=== PATIENT | male | born 1970 ===

== ENCOUNTER 2020-12-28 17:06 | Emergency (ER) | payer OTHER ==
[~2020-12-28 17:06] MED LIST: Iopamidol 370 76% 100 ML VIAL ONE
[2020-12-28 17:47] LABS: INR-International Normal Ratio 0.9; PTT 24.6 sec (22.9-36.1); Prothrombin Time 12.4 sec (12.0-14.7)
[2020-12-28 17:48] LABS: #Eosinphils 0.1 thou/uL (0.0-0.7); #Lymphocytes 2.4 thou/uL (1.20-3.40); #Monocytes 0.5 thou/uL (0.11-0.59); #Neutrophils 5.2 thou/uL (1.40-6.50); %Basophils 0.3 % (0.0-1.0); %Eosinophils 1.7 % (0.0-10.0); %Lymphocytes 28.9 % (21.0-51.0); %Monocytes 5.5 % (0.0-10.0); %Neutrophils 63.7 % (42.0-75.0); Hemoglobin 15.9 g/dL (14.0-18.0); Mean Corpuscular HGB CONC 35.5 g/dL (32.0-36.0); Mean Corpuscular Hemoglobin 32.2 pg (27.0-31.0); Mean Corpuscular Volume 90.8 fL (78.0-98.0); Mean Platelet Volume 8.3 fL (7.4-10.4); Platelet Count 207 thou/uL (130-400); RBC Distribution Width 11.6 % (11.5-14.5); Red Blood Cell (RBC) Count 4.94 mill/uL (4.70-6.10); White Blood Cell (WBC) Count 8.1 thou/uL (4.8-10.8)
[2020-12-28 17:53] LABS: ALT (SGPT) 32 U/L (8-55); AST (SGOT) 24 U/L (5-34); Albumin 4.2 g/dL (3.5-5.0); Alkaline Phosphatase 53 U/L (40-110); Anion Gap 14 mmol/L (10-20); BUN (Urea Nitrogen) 22 mg/dL (8.9-20.6); Bilirubin, Total 0.5 mg/dL (0.2-1.2); Calc. Creatinine Clearance 0 mL/min (70-130); Carbon Dioxide 21 mmol/L (22-29); Chloride 107 mmol/L (98-107); Globulin 2.8 g/dL (2.4-3.5); Glucose 137 mg/dL (70-105); Potassium 3.7 mmol/L (3.5-5.1); Sodium 138 mmol/L (136-145)
[2020-12-28] MEDS ORDERED: Ketamine 50 MG/ML (10ML VIAL) ONE (19:54)
[2020-12-28] MEDS ORDERED: PROPOFOL 0 ML ONE (19:54)
[2020-12-28] MEDS ORDERED: Morphine 4 MG/ML VIAL ONE (22:34)
== END 2020-12-28 22:50 | disposition home or self-care (01) ==
LOC: ERS 17:06
DX: S06.0X9A Concussion with loss of consciousness of unspecified duration, initial encounter (principal); S52.571A Other intraarticular fracture of lower end of right radius, initial encounter for closed fracture; S62.667A Nondisplaced fracture of distal phalanx of left little finger, initial encounter for closed fracture; S20.314A Abrasion of middle front wall of thorax, initial encounter; S30.811A Abrasion of abdominal wall, initial encounter; S40.212A Abrasion of left shoulder, initial encounter; S50.812A Abrasion of left forearm, initial encounter; V80.010A Animal-rider injured by fall from or being thrown from horse in noncollision accident, initial encounter
CPT/HCPCS: 25605; 26750; 36415; 70450; 71045; 71250; 72125; 74177; 80053; 84484; 85025; 85610; 85730; 86850; 86900; 86901; 93005; 96374; 99152; J2270; J2704; Q9967